=== PATIENT | male | born 1985 | race Caucasian/White ===

== ENCOUNTER 2018-02-06 09:51 | Emergency (ER) | payer MEDICAID ==
[~2018-02-06] VITALS: Ht 185.4 cm; Wt 118.0 kg
[2018-02-06] MEDS ORDERED: TETANUS, DIPHTHERIA, PERTUSSIS VAC/PF 0.5ML (>7YR OLD) IM ONE (11:15)
[2018-02-06] MEDS ORDERED: IBUPROFEN 600MG TABLET PO ONE (11:15)
[2018-02-06 11:25] VITALS: BP 139/81
== END 2018-02-06 11:56 | disposition home or self-care (01) ==
LOC: ER 11:05
DX: S61.254A Open bite of right ring finger without damage to nail, initial encounter (principal); W54.0XXA Bitten by dog, initial encounter; Y93.9 Activity, unspecified; Y92.9 Unspecified place or not applicable; F17.210 Nicotine dependence, cigarettes, uncomplicated; F12.90 Cannabis use, unspecified, uncomplicated; Z23 Encounter for immunization
CPT/HCPCS: 73140; 90471; 90715; 99284